=== PATIENT | female | born 1995 | race African-American/Black ===

== ENCOUNTER 2020-01-31 09:20 | Inpatient (IN) | payer OTHER ==
[2020-01-31 10:34] LABS: BASO % 0.4 % (0-2.0); HEMATOCRIT 31.3 % (32.4-45.2); HEMOGLOBIN 10.1 GM/dL (10.7-15.3); MCH 27.8 pg (25.7-33.7); MCHC 32.3 g/dl (32.0-36.0); MEAN CELL VOLUME 85.9 fl (80-96); MEAN PLT VOLUME 9.8 fl (7.5-11.1); MONO % 6.9 % (3.8-10.2); NEUT % 61.7 % (42.8-82.8); PLATELET COUNT 132 K/MM3 (134-434); RBC 3.64 M/mm3 (3.60-5.2); RDW 16.5 % (11.6-15.6); WHITE BLOOD COUNT 6.2 K/mm3 (4.0-10.0)
[2020-01-31 10:41] LABS: INR 0.89 (0.83-1.09); PROTHROMBIN TIME (PATIENT) 10.5 SEC (9.7-13.0)
[2020-01-31 11:00] LABS: BLOOD UREA NITROGEN 9.2 mg/dL (7-18); CALCIUM 8.4 mg/dL (8.5-10.1); CREATININE 0.5 mg/dL (0.55-1.3); POTASSIUM 3.9 mmol/L (3.5-5.1)
[2020-01-31] MEDS ORDERED: MISOPROSTOL 100 MCG TABLET PV PRN (11:00)
[2020-01-31 11:32] VITALS: BMI 31.3
--- NOTE | 2020-01-31 11:43 | HP ---
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 Platelet count is 132K.) - Smoking History Smoking history: Never smoked Have you smoked in the past 12 months: No - Alcohol/Substance Use Hx Alcohol Use: No - Social History History of Recent Travel: No Home Medications - Allergies Allergies/Adverse Reactions: Allergies Allergy/AdvReac Type Severity Reaction Status Date / Time ibuprofen [From Motrin] Allergy Intermediate Rash Verified 01/31/20 09:50 - Home Medications Home Medications: Ambulatory Orders Heparin - 10,000 unit SQ BID 01/31/20 Physical Examination Vital Signs: Vital Signs Temperature 98.6 F 01/31/20 10:00 Pulse Rate 84 01/31/20 10:00 Respiratory Rate 20 01/31/20 10:00 Blood Pressure 116/77 01/31/20 10:00 O2 Sat by Pulse Oximetry (%) Labs: CBC, BMP 01/31/20 10:22 01/31/20 10:22 Assessment/Plan Jennifer Bullock is a 24 Y.O. currently 37w6d for labor induction secondary to past medical history of severe hypertension with her first . The second was managed with Lovenox and labor induction at 37 weeks of gestation. 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 The diagnosis is uncertain. This has been uncomplicated. She has b een maintained on Lovenox 40 mg every 12 hours until this week where she was changed to Heparin 10,000 units every 12 hours in preparation for delivery. After review of the admission labs vaginal 25 mcg cytotec was placed. The cervix is fingertip posterior, 80% effaced and the head is -3 station. Time of cytotec 11:05 am.
--- NOTE | 2020-01-31 15:25 | PN ---
Progress Note, Labor Vaginal Exam #2 Labor Exam Date: 01/31/20 Labor Exam Time: 15:05 Heart Rate (range): 140 baseline, moderate variability Dilatation: 1 cm Effacement (%): 90 Amniotic Membrane Status: Intact Presentation: Vertex/Position Station: -3 (Now 4 hours s/p misoprostol.) Remarks: Contraactions are every 3-4 minutes after cytotec. This is no significant change in cervix. Will continue to observe for now. Plan to start pitocin if contractions space out. Otherwise will reassess in about 2 hours. Patient states she is able to feel the contractions a little bit. Not that much different in intensity from home contractions but more frequent.
--- NOTE | 2020-01-31 16:47 | PN ---
Progress Note, Physician Chief Complaint: No complaints. States she is feeling contractions. - Current Medication List Current Medications: Active Medications Misoprostol (Cytotec) 25 mcg PV [facility] PRN PRN Reason: PAIN LEVEL 1 - 3 Last Admin: 01/31/20 11:05 Dose: 25 mcg Documented by: - Objective Vital Signs: Vital Signs Temperature 98.4 F 01/31/20 16:00 Pulse Rate 74 01/31/20 16:00 Respiratory Rate 18 01/31/20 16:00 Blood Pressure 114/66 01/31/20 16:00 O2 Sat by Pulse Oximetry (%) Genitourinary: Yes: Other (Vaginal exam deferred at this time. FHR tracing 140 baseline moderate variability, + accelerations, no decels. Category 1. Contractions are every 1 minute and therefore started IV fluids to space them out. Now appear to be every 3 minutes. Plan to recheck cervix in about 1-2 ho urs and if more dilated will AROM to continue labor augmentation.) Labs: CBC, BMP 01/31/20 10:22 01/31/20 10:22 INR, PTT INR 0.89 (0.83-1.09) 01/31/20 10:22
[2020-01-31] MEDS ORDERED: DEXTROSE 5%-LACTATED RINGERS 1,000 ML IV SCH (17:00)
[2020-01-31] MEDS ORDERED: OXYTOCIN 30 UNITS in 0.9% NS 30 UNIT/500 ML INFUS.BAG IVPB ONE (18:21)
--- NOTE | 2020-01-31 18:23 | PN ---
Progress Note, Labor Vaginal Exam #3 Labor Exam Date: 01/31/20 Labor Exam Time: 18:15 Heart Rate (range): 140 baseline moderate variability, + accelerations Dilatation: 1cm Effacement (%): 90 Amniotic Membrane Status: Intact Presentation: Vertex/Position Station: -2 Remarks: Patient evaluated at this time. BP106/60 Contractions are irregular and occur at 4-5 minute intervals. Cervix with change. More mid position with descent to -2 station and now 90% effaced. Plan to start pitocin augmentation to achieve every 3 minute contractions.
[2020-01-31] MEDS ORDERED: OXYTOCIN 30 UNITS in 0.9% NS 30 UNIT/500 ML INFUS.BAG IVPB SCH (18:30)
--- NOTE | 2020-01-31 20:44 | PN ---
Progress Note, Labor Vaginal Exam #4 Labor Exam Date: 01/31/20 Labor Exam Time: 20:15 Heart Rate (range): 140 baseline moderate variability, + acceleration, Dilatation: 2 cm Effacement (%): 90 Amniotic Membrane Status: Intact (Attempted rupture of membranes with amnio- hook. Not clear that membranes are ruptured as only mucoid fluid noted. Will see if starts to leak fluid. Tracing is Category 1 and reassuring. Plan for SC Heparin 5000 Units. (10K dose is not on formulary) Will continue prophylaxis for now and plan for Lovenox after delivery. BP-128/74, P=72) Presentation: Vertex/Position Station: -2
--- NOTE | 2020-01-31 21:57 | PN ---
Progress Note, Physician Chief Complaint: Just went to the bathroom and then back in bed. States contractions are stronger now and she feels it in her back. - Current Medication List Current Medications: Active Medications Heparin Sodium (Porcine) (Heparin -) 5,000 unit SQ BID [facility] Dextrose/Lactated Ringer's (D5-Lr -) 1,000 mls @ 125 mls/hr IV ASDIR CEDRIC Last Admin: 01/31/20 16:45 Dose: 125 mls/hr Documented by: Oxytocin/Sodium Chloride (Normal Saline+30 Units Oxytocin) 30 unit in 500 mls @ 1 mls/hr IVPB TITR CEDRIC; Protocol Stop: 02/01/20 18:29 Last Titration: 01/31/20 20:38 Dose: 0.3 unit/hr, 5 mls/hr Documented by: Misoprostol (Cytotec) 25 mcg [facility] PRN PRN Reason: PAIN LEVEL 1 - 3 Last Admin: 01/31/20 11:05 Dose: 25 mcg Documented by: - Objective Vital Signs: Vital Signs Temperature 98.2 F 01/31/20 21:00 Pulse Rate 61 01/31/20 21:00 Respiratory Rate 18 01/31/20 21:00 Blood Pressure 126/74 01/31/20 21:00 O2 Sat by Pulse Oximetry (%) Additional Findings/Remarks: Awaiting Heparin 5000 SC. Patient is stable. Blood pressure is stable. Currently on pitocin 5 MIU. Contractions are every 5 minutes. Labs: CBC, BMP 01/31/20 10:22 01/31/20 10:22 INR, PTT INR 0.89 (0.83-1.09) 01/31/20 10:22
[2020-01-31] MEDS: HEPARIN NA (PORCINE) 5,000 UNITS/ML 1ML VIAL SQ SCH (22:03)
--- NOTE | 2020-01-31 23:16 | PN ---
Progress Note, Labor Vaginal Exam #5 Labor Exam Date: 01/31/20 Labor Exam Time: 23:04 Heart Rate (range): 130 moderate variability, accels, no decels Dilatation: 2cm Effacement (%): 90 Amniotic Membrane Status: Intact (AROM successfully performed at this time. Last attempt did not yeild fluid. This time copious amount of clear amniotic fluid noted.) Presentation: Vertex/Position Station: -2
--- NOTE | 2020-02-01 00:27 | PN ---
Progress Note, Labor Vaginal Exam #6 Labor Exam Date: 02/01/20 Labor Exam Time: 00:20 Heart Rate (range): 130 baeline, moderate variability, variable decels Dilatation: 5 cm Amniotic Membrane Status: Ruptured Presentation: Vertex/Position Station: -2 (Uncomfortable with contractions at this time. More active labor. Plan for epidural placement. Anesthesia notified.)
[2020-02-01] MEDS ORDERED: PCA PUMP NR ONE (00:34)
[2020-02-01] MEDS ORDERED: FENTANYL/BUPIVACAINE/NS/PF - PCEA - 50 ML DISP.SYRIN EP ONE (00:34)
[2020-02-01] MEDS ORDERED: BISACODYL 10 MG SUPP.RECT RC PRN (01:23)
[2020-02-01] MEDS ORDERED: BENZOCAINE 28 GM HEMORRHOIDAL OINTMENT TP PRN (01:23)
[2020-02-01] MEDS ORDERED: WITCH HAZEL 50% (TUCKS) 40 PAD/JAR PAD TP PRN (01:23)
[2020-02-01] MEDS ORDERED: BENZOCAINE 20% 57 GM BOTTLE TP PRN (01:23)
[2020-02-01] MEDS ORDERED: D5W-LR W/ 20 UNITS OXYTOCIN 20 UNIT/1,000 ML INFUS.BAG IV SCH (01:30)
--- NOTE | 2020-02-01 01:33 | PN ---
Delivery - Delivery Vaginal Delivery: No Problems, Spontaneous Type of Anesthesia: None Episiotomy/Laceration: None EBL (cc): 250 (Viable male over intact perineum. 5 minute second stage.) Delivery, Single - Feeding Plan Initial Plan: Elected not to breastfeed exclusively throughout hospitalization
[2020-02-01] MEDS ORDERED: OXYTOCIN 20 UNITS in 0.9% NS 20 UNIT/1,000 ML INFUS.BAG IV ONE (01:48)
[2020-02-01] MEDS: ENOXAPARIN NA (PORCINE) 40 MG/0.4 ML DISP.SYRIN SQ SCH ×2 (09:09→22:00)
[2020-02-01] MEDS: ACETAMINOPHEN 325 MG TABLET (FP) PO PRN ×2 (10:54→22:30)
[2020-02-01] MEDS: HEPARIN NA (PORCINE) 5,000 UNITS/ML 1ML VIAL SQ SCH (12:28)
[2020-02-02 08:30] LABS: BASO % 0.3 % (0-2.0); EOS % 1.1 % (0-4.5); HEMATOCRIT 32.1 % (32.4-45.2); HEMOGLOBIN 10.3 GM/dL (10.7-15.3); MCH 27.5 pg (25.7-33.7); MCHC 32.2 g/dl (32.0-36.0); MEAN CELL VOLUME 85.4 fl (80-96); MEAN PLT VOLUME 9.6 fl (7.5-11.1); MONO % 6.9 % (3.8-10.2); NEUT % 63.7 % (42.8-82.8); PLATELET COUNT 118 K/MM3 (134-434); RBC 3.76 M/mm3 (3.60-5.2); RDW 16.4 % (11.6-15.6); WHITE BLOOD COUNT 7.9 K/mm3 (4.0-10.0)
[2020-02-02] MEDS: ENOXAPARIN NA (PORCINE) 40 MG/0.4 ML DISP.SYRIN SQ SCH ×2 (14:21→22:29)
--- NOTE | 2020-02-02 21:52 | PN ---
Post Progress Note - Subjective Subjective: PPD#1- Reports sciatic nerve pain. No other complaints. Ambulating and voiding without difficulty. States she feels better. Type of Delivery: Vital Signs: Vital Signs Temperature 98.8 F 02/02/20 14:00 Pulse Rate 70 02/02/20 14:00 Respiratory Rate 20 02/02/20 14:00 Blood Pressure 115/63 02/02/20 14:00 O2 Sat by Pulse Oximetry (%) 98 02/02/20 14:00 Uterus: Yes: Fundus Firm, Fundus below umbilicus Abdomen/GI: Yes: Abdomen soft, Tolerating PO Lochia, amount: Small Extremities: Yes: Calves non-tender Perineum: Yes: Intact Activity: Ambulating - Labs Labs: CBC WBC 7.9 K/mm3 (4.0-10.0) 02/02/20 08:15 RBC 3.76 M/mm3 (3.60-5.2) 02/02/20 08:15 Hgb 10.3 GM/dL (10.7-15.3) L 02/02/20 08:15 Hct 32.1 % (32.4-45.2) L 02/02/20 08:15 MCV 85.4 fl (80-96) 02/02/20 08:15 MCH 27.5 pg (25.7-33.7) 02/02/20 08:15 MCHC 32.2 g/dl (32.0-36.0) 02/02/20 08:15 RDW 16.4 % (11.6-15.6) H 02/02/20 08:15 Plt Count 118 K/MM3 (134-434) L 02/02/20 08:15 MPV 9.6 fl (7.5-11.1) 02/02/20 08:15 Absolute Neuts (auto) 5.1 K/mm3 (1.5-8.0) 02/02/20 08:15 Neutrophils % 63.7 % (42.8-82.8) 02/02/20 08:15 Lymphocytes % 28.0 % (8-40) 02/02/20 08:15 Monocytes % 6.9 % (3.8-10.2) 02/02/20 08:15 Eosinophils % 1.1 % (0-4.5) 02/02/20 08:15 Basophils % 0.3 % (0-2.0) 02/02/20 08:15 Nucleated RBC % 0 % (0-0) 02/02/20 08:15 Other Findings, Remarks: Assisted with placing abdominal binder. She states feels better with it on. Consented for baby boy to have circ. Circumcision performed.
[2020-02-02] MEDS ORDERED: SENNOSIDES/DOCUSATE COMBO (SENNA PLUS) TABLET (UD) PO PRN (22:00)
--- NOTE | 2020-02-02 22:24 | DS ---
Physical Exam-TRANSIT CLERK Vital Signs: Vital Signs Temperature 98.8 F 02/02/20 14:00 Pulse Rate 70 02/02/20 14:00 Respiratory Rate 20 02/02/20 14:00 Blood Pressure 115/63 02/02/20 14:00 O2 Sat by Pulse Oximetry (%) 98 02/02/20 14:00 Constitutional: Yes: No Distress Eyes: Yes: WNL HENT: Yes: Atraumatic, Normocephalic Neck: Yes: WNL, Supple, Trachea Midline Cardiovascular: Yes: WNL, Regular Rate and Rhythm Respiratory: Yes: WNL Gastrointestinal: Yes: WNL ...Rectal Exam: Yes: WNL Renal/: Yes: WNL ....Post : Yes: Uterus firm Breast(s): Yes: WNL Musculoskeletal: Yes: Other (Sciatic nerve pain) Extremities: Yes: WNL Edema: No Integumentary: Yes: WNL Neurological: Yes: WNL ...Motor Strength: WNL Psychiatric: Yes: Alert, Oriented Labs: CBC, BMP 02/02/20 08:15 01/31/20 10:22 Delivery - Delivery Vaginal Delivery: No Problems, Spontaneous Type of Anesthesia: None Episiotomy/Laceration: None EBL (cc): 250 (Viable male infant over intact perineum. 5 minute second stage.) Delivery, Single - Stages of Labor Date 1st Stage Initiatied: 01/31/20 Time 1st Stage Initiated: 11:00 Date 2nd Stage Initiated: 02/01/20 Time 2nd Stage Initiated: 00:48 Date of Delivery: 02/01/20 Time of Delivery: 01:00 Time Placenta Delivered: 01:05 Placenta: Yes: Expressed - Condition of Infant Retail Sales Lead/Equal Opportunity Officer Present: No Weight: 6 lb 7 oz Position: OA Total Hours ROM (Hrs/Mins): 1/56 - 1 Minute Total Score: 9 5 Minutes Total Score: 9 - [place] Feeding Plan Initial Plan: Exclusive throughout hospitalization Benefits of Exclusively reinforced: Yes Remarks - Remarks Remarks: course was unremarkable. Thrombocytopenia improved prior to discharge. Discharge Summary Reason For Visit: INDUCTION OF LABOR Maternal coronary artery large aneurysm. Labor induced at 38 weeks of gestation to avoid development of hypertension/pre-eclampsia that would increase maternal risk. Procedures: Principal: Misoprostol X 1 for labor induction. Pitocin augme ntation, and artificial rupture of membranes. Hospital Course: Jennifer Bullock had an uncomplicated induction of labor. She delivered a viable male infant with out complication. Perineum intact without laceration. Health Concerns: Prevention of thrombosis. She understands that post prophyalaxis is required. She will follow up with senior business broker as directed. Plan of Treatment: Continue Lovenox 40 mg. In light of thrombocytopenia will continue only once daily. Will monitor platelet count closely. Follow up planned for 3 weeks in the office. Condition: Good - Instructions Diet, Activity, Other Instructions: Regular diet. Activity as tolerated. No intercourse, nothing in the vaginal canal until after post visit. Schedule appointment with Dr. Fairchild for 3 weeks. Disposition: HOME - Home Medications Comprehensive Discharge Medication List: Lovenox 40 mg every 12 hours. Prescription Drug Monitoring Program (I-STOP) results: I-STOP reviewed and no issues identified
[2020-02-03 07:59] LABS: BASO % 0.3 % (0-2.0); EOS % 2.1 % (0-4.5); HEMATOCRIT 31.8 % (32.4-45.2); HEMOGLOBIN 10.2 GM/dL (10.7-15.3); LYMPH % 27.5 % (8-40); MEAN CELL VOLUME 84.5 fl (80-96); MEAN PLT VOLUME 9.8 fl (7.5-11.1); NEUT % 63.1 % (42.8-82.8); PLATELET COUNT 140 K/MM3 (134-434); RBC 3.77 M/mm3 (3.60-5.2); RDW 16.4 % (11.6-15.6); WHITE BLOOD COUNT 7.9 K/mm3 (4.0-10.0)
[2020-02-03] MEDS: ENOXAPARIN NA (PORCINE) 40 MG/0.4 ML DISP.SYRIN SQ SCH (08:15)
[2020-02-03 12:26] VITALS: BP 127/59; PULSE 98; TEMP 98.4
== END 2020-02-03 11:40 | disposition home or self-care (01) | DRG 806 ==
LOC: JLDR 09:20 → J3W 02-01 03:45
PROVIDERS: ADMIT Obstetrics & Gynecology Maternal & Fetal Medicine; ATTEND Obstetrics & Gynecology Maternal & Fetal Medicine
PROC: 3E0P7VZ Introduction of Hormone into Female Reproductive, Via Natural or Artificial Opening (ICD-10-PCS; principal; 2020-01-31)
PROC: 10E0XZZ Delivery of Products of Conception, External Approach (ICD-10-PCS; 2020-02-01)
PROC: 10907ZC Drainage of Amniotic Fluid, Therapeutic from Products of Conception, Via Natural or Artificial Opening (ICD-10-PCS; 2020-02-01)
DX: O99.12 Other diseases of the blood and blood-forming organs and certain disorders involving the immune mechanism complicating childbirth (principal); I25.3 Aneurysm of heart; Z37.0 Single live birth; D69.6 Thrombocytopenia, unspecified; O99.42 Diseases of the circulatory system complicating childbirth; Z3A.37 37 weeks gestation of pregnancy; Z88.6 Allergy status to analgesic agent; Z79.01 Long term (current) use of anticoagulants; Z86.69 Personal history of other diseases of the nervous system and sense organs
CPT/HCPCS: 36415; 59409; 80048; 85025; 85610; 85730; 86780; 86850; 86900; 86901; 87389; J1644